=== PATIENT | male | born 1980 | race Caucasian/White ===

== ENCOUNTER 2023-10-23 09:01 | Emergency (ER) | payer OTHER, SELFPAY ==
[2023-10-23 09:04] VITALS: BP 150/114
[2023-10-23 09:23] VITALS: BMI 23.3
--- NOTE | 2023-10-23 09:33 | ED.GENMED ---
History of Present Illness
General
Chief Complaint: Abdominal Symptoms
Source: patient
Exam Limitations: none
Time Seen by Provider: 10/23/23 09:10
Travel History
Have you had any contact with someone who has COVID-19?: No
Do you have any symptoms of coronavirus? Fever > 100 degrees, chills, cough, shortness of breath, sore throat, loss of taste or smell, muscle aches, or headache?: No
History of Present Illness
History of Present Illness:
42-year-old male presents complaining of 2 to 3 days worth of intractable nausea and vomiting. He also notes mid abdominal discomfort that radiates to the back. No fevers. No diarrhea. No chest pain or shortness of breath. He is on methadone
195 mg in the morning and 75 mg in the evening. He was prescribed Protonix however his prescription ran out. Denies regular alcohol use. He has been using NSAIDs recently for this back pain. Denies any dark or tarry stools. No other to this time
Past History
Past History
ED Past Medical History: Other (hiatal hernia, umbilical hernia)
ED Past Surgical History: Orthopedic
Social History
Tobacco: Smoker
Alcohol: None
Drug: Former user (opioid addiction), Marijuana (gummies) and Other (on methadone x 10 years)
Personal:
Living: with family
Phy Exam
Physical Exam
Physical Exam:
General: Well-appearing male no acute respiratory distress
HEENT: Normocephalic atraumatic sclera anicteric neck is supple
Heart: Regular rate and rhythm no murmurs
Lungs: Clear to auscultation bilaterally no wheezing
Abdomen: Soft tender to the right upper quadrant no guarding or rebound normal bowel sounds mild right mid back tenderness.
Extremities: No cyanosis or edema
Course
Orders/Labs/Results
Orders:
Orders
10/23/23 09:28
Complete Blood Count/With Diff Urgent
Comprehensive Metabolic Panel Urgent
Lipase Urgent
10/23/23 09:30
0.9% Sodium Chloride 1000 ml [Nss] 1,000 ml IV BOLUS
Famotidine [Pepcid] 20 mg IV NOW STA
Ondansetron Injectable [Zofran] 4 mg IV NOW STA
US Abdomen Complete/Upper Urgent
Comment:
Reason For Exam: epigastric pain
Abnormal Lab Results
10/23/23
09:28
WBC 11.6 H 10^3/uL
(4.8-10.8)
Absolute Lymphs (auto) 4.2 H 10^3/uL
(1.2-3.4)
Absolute Monos (auto) 1.2 H 10^3/uL
(0.1-0.6)
Monocytes % 10.2 H %
(1.7-9.3)
Potassium 3.4 L mmol/L
(3.5-5.1)
Glucose 162 H mg/dl
(70-99)
10/23/23 09:28
10/23/23 09:28
Vital Signs
Initial and Last Documented VS:
Initial Vital Signs
Temp Pulse Resp BP Pulse Ox
98.7 F 124 20 150/114 97
10/23/23 09:04 10/23/23 09:04 10/23/23 09:04 10/23/23 09:04 10/23/23 09:04
Last Documented Vital Signs
Temp Pulse Resp BP Pulse Ox
98.7 F 79 16 145/100 97
10/23/23 09:04 10/23/23 11:30 10/23/23 11:30 10/23/23 11:26 10/23/23 11:26
MDM/Problems Addressed
Differential Diagnosis Includes:
Nausea vomiting with mid abdominal pain. Consider viral illness versus gastritis versus biliary colic. He has been getting his methadone doses. This should not be withdrawal symptoms.
Will check labs including lipase. Hydrate give Zofran and Pepcid and order ultrasound.
*Critical Care Note
Total Time (30-74mins, 75-104mins- exclusive of procedures): Not Applicable
Update Note
Update Note:
Ultrasound negative. Workup unrevealing with normal lipase. Symptoms slightly improved since arrival. He was hydrated given Zofran and Pepcid. Question gastritis. He was prescribed Protonix in the past but he ran out of his prescription. Also
does use marijuana products question possible cyclical vomiting related to this but he has not use any marijuana products in about a week. No indication for any further imaging at this point. Recommend follow-up with GI.
ED Attending Note
-
Portions of this chart may have been created with voice recognition software.� Occasional wrong word or��sound alike� substitutions may have occurred due to the inherent limitations of voice recognition software.
Discharge Plan
Departure
Patient Disposition: Home (Routine Discharge)
Date of Disposition: 10/23/23
Time of Disposition: 13:02
Patient with high blood pressure during this ER visit?: No
Discharge Problem:
Nausea & vomiting
Instructions: Nausea and Vomiting, Adult (DC)
Prescriptions:
New
pantoprazole [Protonix] 40 mg tablet,delayed release (DR/EC)
40 mg PO DAILY Qty: 30 0RF
ondansetron 4 mg tablet,disintegrating
4 mg PO Q8H PRN (Reason: nausea and vomiting) Qty: 10 0RF
No Action
methadone
195 mg PO DAILY
methadone
80 mg PO HS
oxycodone 5 mg tablet
5 - 10 mg PO Q4HPRN PRN (Reason: moderate to severe pain) Qty: 7 0RF
pantoprazole [Protonix] 40 mg tablet,delayed release (DR/EC)
40 mg PO DAILY Qty: 14 0RF
Referrals:
Meri Rivera MD [Active] -
UNKNOWN - PT DOES,NOT KNOW [Family Provider] -
Activity Restrictions/Additional Instructions:
Continue with plenty of fluids. Eat a bland diet. Follow-up with GI for further evaluation. Prescriptions were sent here for
Interventions
Interventions:
*Risk Screen - Suicide Last Done: 10/23/23 09:23
*General Assessment Last Done: 10/23/23 09:23
*Neglect/Abuse Screening Last Done: 10/23/23 09:23
*ED COVID-19 Vaccine History Last Done: 10/23/23 09:07
EO-Xraowk-Lwxmhyjrnv Assessment Last Done: 10/23/23 09:23
[2023-10-23] MEDS: NSS 1000 IV (09:34)
[2023-10-23] MEDS: ZOFRAN 4 MG IV (09:35)
[2023-10-23] MEDS: PEPCID 20 MG IV (09:35)
[2023-10-23 09:44] LABS: % Basophils 0.7 % (0-2); % Eosinophils 1.1 % (0-6); % Immature Granulocytes 0.3 % (0-0.5); % Lymphocytes 35.9 % (20.5-51.1); % Monocytes 10.2 % (1.7-9.3); % Neutrophils 51.8 % (42.2-75.2); Absolute Basophils 0.1 10^3/uL (0-0.2); Absolute Eosinophils 0.1 10^3/uL (0-0.7); Absolute Lymphocytes 4.2 10^3/uL (1.2-3.4); Absolute Monocytes 1.2 10^3/uL (0.1-0.6); Hematocrit 49.6 % (39.0-52.0); Hemoglobin 16.8 g/dL (13.0-18.0); Mean Corp Hgb Conc. 33.9 g/dL (33.0-37.0); Mean Corpuscular Hgb 29.2 pg (27.0-31.0); Mean Corpuscular Volume 86.1 fL (80.0-94.0); Mean Platelet Volume 9.4 fL (7.4-10.4); Nucleated Red Blood Cells % 0 % (-); Platelet Count 270 10^3/uL (130-400); Red Blood Cell Count 5.76 10^6/uL (4.70-6.10); White Blood Cell Count 11.6 10^3/uL (4.8-10.8)
[2023-10-23 09:56] LABS: ALT (SGPT) 26 U/L (0-50); AST (SGOT) 39 U/L (17-59); Albumin 4.8 g/dl (3.5-5.0); Alkaline Phosphatase 77 U/L (38-126); Blood Urea Nitrogen 14 mg/dl (9-20); Calcium 9.1 mg/dl (8.4-10.2); Carbon Dioxide 22 mmol/L (22-30); Chloride 101 mmol/L (98-107); Estimated Creatinine Clearance 123 ml/min; Glucose 162 mg/dl (70-99); Lipase 72 U/L (23-300); Potassium 3.4 mmol/L (3.5-5.1); Sodium 139 mmol/L (135-145); Total Bilirubin 1.2 mg/dl (0.2-1.3); Total Protein 7.4 g/dl (6.3-8.2); eGFR > 60.00
[2023-10-23 10:23] VITALS: BP 149/94
[2023-10-23 11:26] VITALS: BP 145/100
[2023-10-23 12:00] VITALS: BP 138/89
== END 2023-10-23 13:33 | disposition home or self-care (01) ==
LOC: EMR 09:01
PROVIDERS: EMERGENCY PHYSICIAN Emergency Medicine
DX: R11.2 Nausea with vomiting, unspecified (principal); R10.9 Unspecified abdominal pain; F17.200 Nicotine dependence, unspecified, uncomplicated; F12.90 Cannabis use, unspecified, uncomplicated
CPT/HCPCS: 99284; 96374; 96375; 96361; 76700; 80053; 83690; 85025

== ENCOUNTER → 2023-12-09 12:27 | Outpatient (REF) | payer OTHER, SELFPAY | LOC: HWRAD 12:27 | PROVIDERS: ATTENDING PHYSICIAN Student in an Organized Health Care Education/Training Program | DX: R11.2 Nausea with vomiting, unspecified (principal) | CPT/HCPCS: 74178; Q9967 ==

== ENCOUNTER 2024-08-10 08:13 | Emergency (ER) | payer OTHER, SELFPAY ==
[2024-08-10 08:19] VITALS: BP 144/106
[2024-08-10 08:36] VITALS: BMI 22.4
--- NOTE | 2024-08-10 08:37 | ED.GENMED ---
History of Present Illness
General
Chief Complaint: Chest Pain
Source: patient
Exam Limitations: none
Time Seen by Provider: 08/10/24 08:25
Nursing documentation reviewed up to this point in time: agreed with
History of Present Illness
History of Present Illness:
43-year-old male past medical history of hypertension, GERD, substance abuse presenting to the emergency department today with concerns of nausea and driving starting last night woke up this morning and also had diffuse chest discomfort that is
somewhat intermittent ongoing of diffuse abdominal pain has a mild shortness of breath associated as well. Has had cyclic vomiting in the past. Denies using any marijuana.
Past History
Past History
ED Past Medical History: Other (hiatal hernia, umbilical hernia)
ED Past Surgical History: Orthopedic
Social History
Tobacco: Smoker
Alcohol: None
Drug: Former user (opioid addiction), Marijuana (gummies) and Other (on methadone x 10 years)
Personal:
Living: with family
Review of Systems
Review of Systems
Allergies reviewed?: Yes
All Other Systems: ROS reviewed and negative except as documented in HPI and ROS
Phy Exam
Physical Exam
Physical Exam:
GENERAL: Alert , in no apparent distress
EYE: pupils equal and reactive
NECK: Supple, no significant adenopathy.
ENT: o/p clr, mmm.
CARDIAC: Regular rate and rhythm .
LUNGS: Clear breath sounds bilaterally, no acute respiratory distress, no wheezes/rales/rhonchi
ABDOMEN: Vague discomfort throughout the abdomen to palpation. No specific focal discomfort.
NEUROLOGICAL: Alert and oriented, no focal neuro deficits
SKIN: Warm and dry, skin intact.
MUSCULOSKELETAL: No edema, well perfused.
PSYCH: Normal and appropriate interaction.
Scores
Heart Score for Chest Pain Patients
STEMI patient?: Not applicable
Course
Orders/Labs/Results
Orders:
Orders
08/10/24 08:14
Electrocardiogram (*1) Urgent
Reason for Study: Chest Pain
EKG- Treatment ONCE
08/10/24 08:35
CT Abd/Pel (IV only)-DH only Urgent
Comment:
Reason For Exam: diffuse abd painm vomiting
0.9% Sodium Chloride 1000 ml [Nss] 1,000 ml IV BOLUS
Famotidine [Pepcid] 20 mg IV NOW STA
Ondansetron Injectable [Zofran] 4 mg IV NOW STA
08/10/24 08:36
Dicyclomine HCl [Bentyl] 20 mg IM NOW STA
Chest [CR Chest - 2 Views ] Urgent
Comment:
Reason For Exam: cp
08/10/24 08:42
Comprehensive Metabolic Panel Urgent
Lipase Urgent
Troponin I Urgent
08/10/24 08:43
Complete Blood Count/With Diff Urgent
08/10/24 10:02
Urinalysis Reflex To Culture Urgent
Date Specimen was Collected: 08/10/24
Time Specimen was Collected: 10:01
08/10/24 10:52
Diphenhydramine [Benadryl] 25 mg IV NOW STA
Metoclopramide [Reglan] 10 mg IV NOW STA
08/10/24 10:54
Ondansetron Injectable [Zofran] 4 mg IV NOW STA
Abnormal Lab Results
08/10/24 08/10/24 08/10/24
08:42 08:43 10:02
Absolute Monos (auto) 1.0 H 10^3/uL
(0.1-0.6)
Monocytes % 10.2 H %
(1.7-9.3)
Glucose 115 H mg/dl
(70-99)
Urine Ketones 2+ A
(Negative)
08/10/24 08:43
08/10/24 08:42
Vital Signs
Initial and Last Documented VS:
Initial Vital Signs
Temp Pulse Resp BP Pulse Ox
98.4 F 89 18 144/106 96
08/10/24 08:19 08/10/24 08:19 08/10/24 08:19 08/10/24 08:19 08/10/24 08:19
Last Documented Vital Signs
Temp Pulse Resp BP Pulse Ox
98.4 F 89 18 144/106 96
08/10/24 08:19 08/10/24 08:19 08/10/24 08:19 08/10/24 08:19 08/10/24 08:19
MDM/Problems Addressed
MDM/Problems Addressed:
43-year-old male presenting to the emergency department today with concerns of nausea and dry heaving starting last night some chest pain today with associated shortness of breath. On arrival patient does have diffuse abdominal discomfort to
palpation. Chest pain is not currently active during my assessment. Lungs are clear heart sounds normal. CT scan without emergent findings. No evidence of life-threatening pathology causing symptoms at this time. Patient did have improvement
with Zofran. Otherwise stable for discharge at this time.
*Critical Care Note
Total Time (30-74mins, 75-104mins- exclusive of procedures): Not Applicable
ED Attending Note
-
Portions of this chart may have been created with voice recognition software.� Occasional wrong word or��sound alike� substitutions may have occurred due to the inherent limitations of voice recognition software.
Discharge Plan
Departure
Patient Disposition: Home (Routine Discharge)
Date of Disposition: 08/10/24
Time of Disposition: 11:13
Patient with high blood pressure during this ER visit?: No
Condition: Good
Covid-19: Not Applicable
Discharge Problem:
Vomiting
Instructions: Nausea and Vomiting, Adult (DC), Chest Pain PCP Follow Up
Prescriptions:
New
ondansetron 4 mg tablet,disintegrating
4 mg PO Q6H PRN (Reason: nausea and vomiting) Qty: 7 0RF
No Action
methadone
195 mg PO DAILY
methadone
80 mg PO HS
oxycodone 5 mg tablet
5 - 10 mg PO Q4HPRN PRN (Reason: moderate to severe pain) Qty: 7 0RF
pantoprazole [Protonix] 40 mg tablet,delayed release (DR/EC)
40 mg PO DAILY Qty: 14 0RF
pantoprazole [Protonix] 40 mg tablet,delayed release (DR/EC)
40 mg PO DAILY Qty: 30 0RF
ondansetron 4 mg tablet,disintegrating
4 mg PO Q8H PRN (Reason: nausea and vomiting) Qty: 10 0RF
Referrals:
Renetta Stubbs MD [Active] - Follow up in 10 days
UNKNOWN - PT DOES,NOT KNOW [Family Provider] -
Activity Restrictions/Additional Instructions:
You came to the emergency department today with concerns of nausea and vomiting here. He also had chest pain. Here you had a normal chest x-ray and EKG which is reassuring your labs were unremarkable. You had a normal CT scan. Please follow
closely with a GI doctor and your primary care doctor. Return to the emergency department any worsening, new or concerning symptoms.
Interventions
Interventions:
*Risk Screen - Suicide Last Done: 08/10/24 08:19
*General Assessment Last Done: 08/10/24 08:19
*Neglect/Abuse Screening Last Done: 08/10/24 08:19
*ED COVID-19 Vaccine History Last Done: 08/10/24 08:23
Discharge Date and Time
Print Language: BULGARIAN
[2024-08-10] MEDS: NSS 1000 IV (08:45)
[2024-08-10] MEDS: PEPCID 20 MG IV (08:48)
[2024-08-10] MEDS: ZOFRAN 4 MG IV ×2 (08:48→11:04)
[2024-08-10 09:00] VITALS: BP 144/97
[2024-08-10 09:03] LABS: % Basophils 0.4 % (0-2); % Eosinophils 0.6 % (0-6); % Immature Granulocytes 0.3 % (0-0.5); % Monocytes 10.2 % (1.7-9.3); % Neutrophils 63.5 % (42.2-75.2); Absolute Eosinophils 0.1 10^3/uL (0-0.7); Absolute Lymphocytes 2.3 10^3/uL (1.2-3.4); Absolute Neutrophils 5.9 10^3/uL (1.4-6.5); Hematocrit 41.2 % (39.0-52.0); Mean Corpuscular Hgb 29.4 pg (27.0-31.0); Mean Corpuscular Volume 86.6 fL (80.0-94.0); Mean Platelet Volume 9.4 fL (7.4-10.4); Nucleated Red Blood Cells % 0 % (-); Platelet Count 236 10^3/uL (130-400); Red Blood Cell Count 4.76 10^6/uL (4.70-6.10); White Blood Cell Count 9.3 10^3/uL (4.8-10.8)
[2024-08-10 09:18] LABS: ALT (SGPT) 18 U/L (0-50); AST (SGOT) 33 U/L (17-59); Albumin 4.6 g/dl (3.5-5.0); Alkaline Phosphatase 60 U/L (38-126); Blood Urea Nitrogen 15 mg/dl (9-20); Calcium 9.4 mg/dl (8.4-10.2); Carbon Dioxide 25 mmol/L (22-30); Chloride 102 mmol/L (98-107); Estimated Creatinine Clearance 118 ml/min; Glucose 115 mg/dl (70-99); Lipase 78 U/L (23-300); Potassium 3.5 mmol/L (3.5-5.1); Sodium 138 mmol/L (135-145); Total Bilirubin 0.7 mg/dl (0.2-1.3); eGFR > 60.00
[2024-08-10 09:28] LABS: Troponin I < 0.012 ng/ml
[2024-08-10] MEDS: BENTYL 20 MG IM (09:43)
[2024-08-10 10:22] LABS: Urine Albumin Negative (Neg - Trace); Urine Bilirubin Negative (Negative); Urine Character Clear (Clear); Urine Color Straw; Urine Glucose Negative (Negative); Urine Ketone 2+ (Negative); Urine Leukocyte Negative (Negative); Urine Nitrite Negative (Negative); Urine Occult Blood Negative (Negative); Urine Urobilinogen Negative (Neg - 1+)
[2024-08-10 11:05] VITALS: BP 126/88
[2024-08-10 11:37] VITALS: BP 128/92
== END 2024-08-10 11:51 | disposition home or self-care (01) ==
LOC: EMR 08:13
PROVIDERS: Physician Assistant; EMERGENCY PHYSICIAN Emergency Medicine
DX: R11.2 Nausea with vomiting, unspecified (principal); R07.89 Other chest pain; F17.200 Nicotine dependence, unspecified, uncomplicated; I10 Essential (primary) hypertension; K21.9 Gastro-esophageal reflux disease without esophagitis
CPT/HCPCS: 96374; 96375; 96376; 96372; 96361; 99284; 74177; 80053; 81003; 83690; 84484; 85025; 93005; Q9967

== ENCOUNTER 2024-08-29 14:55 | Emergency (ER) | payer OTHER, SELFPAY ==
[2024-08-29 15:03] VITALS: BP 177/99
--- NOTE | 2024-08-29 15:04 | ED.GENMED ---
ED Provider Triage
<Boni Carlson PA-C - Last Filed: 08/29/24 15:05>
-
Patient seen by provider in Triage?: Seen in Triage
Attestation: A medical screening examination has been initiated by a qualified medical provider. Based on the assessment performed at this time, it has been determined that an emergent medical condition may exist and the patient has been informed
that further medical evaluation and possible additional diagnostic testing may be needed.
HPI: 43-year-old male presenting to the emergency department for evaluation of difficulty breathing stating it felt as if his throat he had a clicking sensation earlier today. Symptoms persist. No fevers or recent illnesses. No chest pain.
Patient also denies any cough. He appears very anxious, tearful and upset. Labs and EKG ordered.
GENERAL: Alert , in no apparent distress
EYE: No visual abnormalities.
NECK: Trachea midline
ENT: No visible abnormalities.
LUNGS: No acute respiratory distress
NEUROLOGICAL: Alert and oriented
SKIN: Skin intact. No visible changes.
MUSCULOSKELETAL: Moving extremities normally
PSYCH: Normal and appropriate interaction.
This is a medical evaluation conducted in person to initiate diagnostic evaluation and provide initial therapeutics. Please see further documentation by the treating clinician.
History of Present Illness
<Boni Carlson PA-C - Last Filed: 08/29/24 15:05>
General
Chief Complaint: Breathing Problem
Time Seen by Provider: 08/29/24 18:46
<Issac Denis MD - Last Filed: 08/30/24 15:05>
General
Source: patient
Exam Limitations: none
Nursing documentation reviewed up to this point in time: agreed with
History of Present Illness
History of Present Illness:
Patient presents to ED secondary to difficulty swallowing, along with shortness of breath and fatigue, body ache recently, although some of his symptoms have been ongoing for the past 1 year. Patient has been evaluated at primary care physician's
office as well as an other emergency department on multiple occasions for similar complaint. Denies fever or chills. Denies coughing. Denies nausea, vomiting, or diarrhea. Patient does report weight loss over the past 1 year with onset of his
symptoms. Patient is scheduled to see GI physician next week for an outpatient endoscopy.
Past History
<Boni Carlson PA-C - Last Filed: 08/29/24 15:05>
Past History
ED Past Medical History: Other (hiatal hernia, umbilical hernia)
ED Past Surgical History: Orthopedic
Social History
Tobacco: Smoker
Alcohol: None
Drug: Former user (opioid addiction), Marijuana (gummies) and Other (on methadone x 10 years)
Personal:
Living: with family
Review of Systems
<Issac Denis MD - Last Filed: 08/30/24 15:05>
Review of Systems
Allergies reviewed?: Yes
All Other Systems: ROS reviewed and negative except as documented in HPI and ROS
Constitutional: Reports no symptoms; Denies fever or chills
EENT: Reports no symptoms
Respiratory: Reports trouble breathing; Denies cough
Cardiac: Reports no symptoms; Denies chest pain
ABD/GI: Reports no symptoms; Denies abdominal pain, nausea, vomiting or diarrhea
Musculoskeletal: Reports no symptoms
Skin: Reports no symptoms
Neurological: Reports no symptoms
Phy Exam
<Issac Denis MD - Last Filed: 08/30/24 15:05>
Physical Exam
Physical Exam:
Physical Exam
General: no apparent distress, not acutely ill. afebrile
Head: nc/at. eomi
Neck: supple. normal range of motion.
Heart: s1/s2 regular rate and rhythm, no murmur.
Lungs: no acute respiratory distress. clear bilaterally
Abdomen: normal bowel sounds. not tender.
Neuro: alert and oriented. no focal neurological deficits
Skin: no rash
Psychiatric: well kept. interactive and cooperative
Extremities: no edema. no calf tenderness.
Course
<Boni Carlson PA-C - Last Filed: 08/29/24 15:05>
Orders/Labs/Results
Orders:
Orders
08/29/24 14:56
Electrocardiogram (*1) Urgent
Reason for Study: Shortness of Breath
08/29/24 14:57
EKG- Treatment ONCE
08/29/24 15:12
CMP [Comprehensive Metabolic Panel] Urgent
Complete Blood Count/With Diff Urgent
Free T4 Urgent
Lyme Progressive Urgent
Comment: ADD ON
Magnesium Urgent
Comment: ADD ON
Monotest Urgent
Comment: ADD ON
TSH Reflex To Free T4 Urgent
Comment: ADD ON
Troponin I Urgent
08/29/24 19:16
Add On- LAB Urgent
Tests Added?: magnesium, TSH to reflex Free T4, Lyme titer, monotest
CR Chest - 2 Views Urgent
Comment:
Reason For Exam: sob
08/29/24 19:36
D-Dimer Urgent
08/29/24 19:40
COVID-19 Antigen Urgent
Source: Nasal Swab
Abnormal Lab Results
08/29/24
15:12
Absolute Monos (auto) 0.7 H 10^3/uL
(0.1-0.6)
Glucose 151 H mg/dl
(70-99)
TSH (Reflex) 7.30 H uIU/ml
(0.47-4.68)
08/29/24 15:12
08/29/24 15:12
Vital Signs
Initial and Last Documented VS:
Initial Vital Signs
Temp Pulse Resp BP Pulse Ox
98.8 F 94 16 177/99 99
08/29/24 15:03 08/29/24 15:03 08/29/24 15:03 08/29/24 15:03 08/29/24 15:03
Last Documented Vital Signs
Temp Pulse Resp BP Pulse Ox
98.8 F 71 18 140/80 97
08/29/24 15:03 08/29/24 21:25 08/29/24 21:25 08/29/24 21:25 08/29/24 21:25
<Issac Denis MD - Last Filed: 08/30/24 15:05>
Orders/Labs/Results
Orders:
Orders
08/29/24 14:56
Electrocardiogram (*1) Urgent
Reason for Study: Shortness of Breath
08/29/24 14:57
EKG- Treatment ONCE
08/29/24 15:12
CMP [Comprehensive Metabolic Panel] Urgent
Complete Blood Count/With Diff Urgent
Free T4 Urgent
Lyme Progressive Urgent
Comment: ADD ON
Magnesium Urgent
Comment: ADD ON
Monotest Urgent
Comment: ADD ON
TSH Reflex To Free T4 Urgent
Comment: ADD ON
Troponin I Urgent
08/29/24 19:16
Add On- LAB Urgent
Tests Added?: magnesium, TSH to reflex Free T4, Lyme titer, monotest
CR Chest - 2 Views Urgent
Comment:
Reason For Exam: sob
08/29/24 19:36
D-Dimer Urgent
08/29/24 19:40
COVID-19 Antigen Urgent
Source: Nasal Swab
Abnormal Lab Results
08/29/24
15:12
Absolute Monos (auto) 0.7 H 10^3/uL
(0.1-0.6)
Glucose 151 H mg/dl
(70-99)
TSH (Reflex) 7.30 H uIU/ml
(0.47-4.68)
08/29/24 15:12
08/29/24 15:12
Vital Signs
Initial and Last Documented VS:
Initial Vital Signs
Temp Pulse Resp BP Pulse Ox
98.8 F 94 16 177/99 99
08/29/24 15:03 08/29/24 15:03 08/29/24 15:03 08/29/24 15:03 08/29/24 15:03
Last Documented Vital Signs
Temp Pulse Resp BP Pulse Ox
98.8 F 71 18 140/80 97
08/29/24 15:03 08/29/24 21:25 08/29/24 21:25 08/29/24 21:25 08/29/24 21:25
<Issac Denis MD - Last Filed: 08/30/24 15:05>
MDM/Problems Addressed
MDM/Problems Addressed:
Patient with an unremarkable workup in ED, including blood work, EKG, and chest x-ray. CT abdomen pelvis report reviewed from 2 weeks ago during previous ED visit.
Lyme titer pending.
Patient otherwise is afebrile, hemodynamically stable, and nontoxic-appearing at time of discharge. Patient will continue to follow-up with his GI physician for further workup.
<Issac eDnis MD - Last Filed: 08/30/24 15:05>
*Critical Care Note
Total Time (30-74mins, 75-104mins- exclusive of procedures): Not Applicable
ED Attending Note
<Boni Carlson PA-C - Last Filed: 08/29/24 15:05>
-
Portions of this chart may have been created with voice recognition software.� Occasional wrong word or��sound alike� substitutions may have occurred due to the inherent limitations of voice recognition software.
Discharge Plan
Departure
Patient Disposition: Home (Routine Discharge)
Date of Disposition: 08/29/24
Time of Disposition: 22:11
Patient with high blood pressure during this ER visit?: Yes
Discharge Problem:
Dysphagia, Dyspnea
Instructions: Shortness of breath, Dysphagia in adults - Discharge instructions
Prescriptions:
No Action
methadone
195 mg PO DAILY
methadone
80 mg PO HS
oxycodone 5 mg tablet
5 - 10 mg PO Q4HPRN PRN (Reason: moderate to severe pain) Qty: 7 0RF
pantoprazole [Protonix] 40 mg tablet,delayed release (DR/EC)
40 mg PO DAILY Qty: 14 0RF
pantoprazole [Protonix] 40 mg tablet,delayed release (DR/EC)
40 mg PO DAILY Qty: 30 0RF
ondansetron 4 mg tablet,disintegrating
4 mg PO Q8H PRN (Reason: nausea and vomiting) Qty: 10 0RF
ondansetron 4 mg tablet,disintegrating
4 mg PO Q6H PRN (Reason: nausea and vomiting) Qty: 7 0RF
Referrals:
UNKNOWN - PT DOES,NOT KNOW [Family Provider] -
Activity Restrictions/Additional Instructions:
As discussed, please follow-up with your primary care physician and GI physician for continual evaluation and treatment.
Interventions
Interventions:
*Risk Screen - Suicide Last Done: 08/29/24 15:03
*General Assessment Last Done: 08/29/24 19:32
*Neglect/Abuse Screening Last Done: 08/29/24 15:03
ED- Fall Risk Assessment Last Done: 08/29/24 19:32
*Nursing Disposition Last Done: 08/29/24 22:51
ED- Cardiac Assessment Last Done: 08/29/24 20:00
ED- Pulmonary Assessment Last Done: 08/29/24 20:00
Discharge Date and Time
Discharge Date/Time: 08/29/24 22:52
Print Language: SINHALA
[2024-08-29 15:29] LABS: % Basophils 0.7 % (0-2); % Eosinophils 1.4 % (0-6); % Immature Granulocytes 0.4 % (0-0.5); % Lymphocytes 35.4 % (20.5-51.1); % Monocytes 8.1 % (1.7-9.3); Absolute Basophils 0.1 10^3/uL (0-0.2); Absolute Eosinophils 0.1 10^3/uL (0-0.7); Absolute Monocytes 0.7 10^3/uL (0.1-0.6); Absolute Neutrophils 4.6 10^3/uL (1.4-6.5); Hematocrit 46.4 % (39.0-52.0); Hemoglobin 15.5 g/dL (13.0-18.0); Mean Corp Hgb Conc. 33.4 g/dL (33.0-37.0); Mean Corpuscular Hgb 29.7 pg (27.0-31.0); Mean Corpuscular Volume 88.9 fL (80.0-94.0); Mean Platelet Volume 9.4 fL (7.4-10.4); Nucleated Red Blood Cells % 0 % (-); Platelet Count 261 10^3/uL (130-400); Red Blood Cell Count 5.22 10^6/uL (4.70-6.10); Red Cell Dist. Width 11.9 % (11.5-14.5); White Blood Cell Count 8.5 10^3/uL (4.8-10.8)
[2024-08-29 15:40] LABS: ALT (SGPT) 15 U/L (0-50); AST (SGOT) 20 U/L (17-59); Albumin 4.6 g/dl (3.5-5.0); Alkaline Phosphatase 60 U/L (38-126); Blood Urea Nitrogen 13 mg/dl (9-20); Calcium 9.4 mg/dl (8.4-10.2); Carbon Dioxide 25 mmol/L (22-30); Chloride 102 mmol/L (98-107); Glucose 151 mg/dl (70-99); Sodium 138 mmol/L (135-145); Total Bilirubin 0.6 mg/dl (0.2-1.3); Total Protein 7.3 g/dl (6.3-8.2); eGFR > 60.00
[2024-08-29 15:51] LABS: Troponin I < 0.012 ng/ml
--- NOTE | 2024-08-29 18:45 | EDRN ---
Report received from Leatha CARLIN at this time.
--- NOTE | 2024-08-29 19:05 | EDRN ---
Dr. Denis over to see pt.
--- NOTE | 2024-08-29 19:22 | EDRN ---
Pt ambulated in from De[facility] #3 to out side of room #40 and back to Decon #3. POX when pleth normal was 97% at start, during and at end. Pulse in 90's and increased to 102 on return to Decon #3. Pt stated he felt a pinching sensation in R clavicle
area. Pt states his pain is in R scapular area.
[2024-08-29 19:35] LABS: Magnesium 2.1 mg/dl (1.6-2.3); Monotest Negative (Negative)
[2024-08-29 19:50] VITALS: BP 140/94
[2024-08-29 19:57] LABS: D-Dimer < 0.27 ug/mlFEU (0.00-0.50)
[2024-08-29 20:01] LABS: COVID-19 Antigen Negative (Negative)
[2024-08-29 20:35] LABS: Free T4 0.88 ng/dl (0.78-2.19)
[2024-08-29 21:25] VITALS: BP 140/80
[2024-08-31 15:51] LABS: Lyme Antibody Screen, EIA Negative (Negative)
== END 2024-08-29 22:52 | disposition home or self-care (01) ==
LOC: EMR 14:55
PROVIDERS: Emergency Medicine; EMERGENCY PHYSICIAN Emergency Medicine
DX: R13.10 Dysphagia, unspecified (principal); R06.00 Dyspnea, unspecified; F17.200 Nicotine dependence, unspecified, uncomplicated
CPT/HCPCS: 99283; 71046; 80053; 83735; 84439; 84443; 84484; 85025; 85379; 86308; 86618; 87811; 93005

== ENCOUNTER 2024-09-04 06:27 | Day surgery (SDC) | payer OTHER, SELFPAY | END 2024-09-04 14:37 | disposition home or self-care (01) | LOC: GI 06:27 | PROVIDERS: ATTENDING PHYSICIAN Internal Medicine Gastroenterology | DX: R11.2 Nausea with vomiting, unspecified (principal); K22.89 Other specified disease of esophagus; K29.70 Gastritis, unspecified, without bleeding; K31.89 Other diseases of stomach and duodenum; K20.90 Esophagitis, unspecified without bleeding | CPT/HCPCS: 43239; 88305; 88342 ==

== ENCOUNTER 2024-11-05 06:19 | Day surgery (SDC) | payer OTHER, SELFPAY | END 2024-11-05 09:11 | disposition home or self-care (01) | LOC: GI 06:19 | PROVIDERS: ATTENDING PHYSICIAN Internal Medicine Gastroenterology | DX: Z12.11 Encounter for screening for malignant neoplasm of colon (principal); R19.4 Change in bowel habit; K64.8 Other hemorrhoids; Q43.8 Other specified congenital malformations of intestine; D12.5 Benign neoplasm of sigmoid colon; Z80.0 Family history of malignant neoplasm of digestive organs | CPT/HCPCS: 45385; 45380; 88305 ==